=== PATIENT | male | born 1945 | race Caucasian/White ===

== ENCOUNTER → 2018-10-20 | Outpatient (CLI) | payer BC | LOC: ULTRA 13:40 | DX: R60.0 Localized edema (principal); M25.561 Pain in right knee ==

== ENCOUNTER 2019-02-26 05:46 | Day surgery (SDC) | payer BC ==
[~2019-02-26] VITALS: Ht 185.4 cm; Wt 127.0 kg
[~2019-02-26 05:46] MED LIST: CENTRUM SILVER1 EAC2 PO; FISH OIL 1,001000 M2 PO; FLOMAX0.4 MG PO; NORVASC5 MG PO
[2019-02-26 07:14] VITALS: BP 131/50
[2019-02-26 09:00] VITALS: BP 131/50
--- NOTE | 2019-04-07 11:38 | O ---
[facility] [place] [address] OPERATIVE REPORT Name: DALIA SMITH Room #: DEP [facility] Suni.#: [id number] Admission: 02/26/19 Attend Phys: Trae Brooks Discharge: 02/26/19 Date of : 47 Report #: [id number] THIS REPORT FOR: //name// CC: Trae Blount DATE OF SERVICE: 02/26/2019 PREOPERATIVE DIAGNOSES: Right knee pain, effusion, lateral meniscus tear, recurrent medial meniscus tear, patellofemoral joint osteoarthritis. 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 PROCEDURE PERFORMED: Right knee arthroscopy, partial medial and lateral meniscectomy, tricompartmental chondroplasty. SURGEON: Trae Parikh MD BUSINESS PROCESS EXPERT: Jenelle Hernandez PA-C. ANESTHESIA: General. FLUIDS: 500 mL crystalloid. ESTIMATED BLOOD LOSS: Approximately 2 mL. TOURNIQUET TIME: Approximately 25 minutes at 300 mmHg. DESCRIPTION OF PROCEDURE: After proper identification of the patient and operative site in preoperative holding area, the operative site was signed by myself. Prophylactic antibiotics given. The patient elected to receive a general anesthetic. After induction of satisfactory general anesthesia, the right knee was examined. The patient had approximately 10-15 degrees from full extension. He was stable to varus and valgus stresses. Patellofemoral crepitus was noted. Tourniquet was applied to the upper thigh. Limb was placed in an arthroscopic leg ervin and sterilely prepped and draped in the usual manner. Limb was elevated and exsanguinated with an Esmarch. Tourniquet was inflated to 300 mmHg. Superior medial portal was created for inflow purposes. Joint was inflated by gravity inflow with normal saline. An anterolateral and then an anteromedial portal were created using a spinal needle for localization. Examination of the patellofemoral joint revealed some small intra-articular chondral loose bodies that were removed with suction. Diffuse patellofemoral joint chondromalacia/arthrosis was noted. This was more pronounced on the medial patellar facet. Loose chondral flaps were debrided with motorized [address] [address] OPERATIVE REPORT Name: DALIA SMITH Room #: DEP [facility] Suni.#: [id number] Admission: 02/26/19 Attend Phys: Trae Brooks Discharge: 02/26/19 Date of : 47 Report #: [id number] shaver. Some generalized fibrillated tissue was noted surrounding this area. Chondral thinning of the more medial and superior aspect of the trochlea was noted. Examination of the medial compartment of the knee revealed a recurrent tear at the junction of the mid body and posterior horn of the meniscus. This was carefully debrided with combination of hand and motorized instrumentation. Some diffuse chondral thinning fibrillation and fraying was noted of the medial femoral condyle in approximately 30 degrees of flexion. The remaining meniscus was stable to probing. Intracondylar notch revealed some spurring about the notch. The anterior and posterior cruciate ligaments were intact and stable. Lateral compartment of the knee revealed a tear of the posterior horn and mid body. This was debrided with combination of hand and motorized instrumentation and diffuse fibrillation was noted about the lateral tibial plateau and some mild chondral thinning was also appreciated on the lateral femoral condyle. An accessory anteromedial portal was also created to aid in getting into the posterior horn of the medial meniscus due to his flexion contracture and generalized tightness. His knee remains ligamentously stable. Joint was thoroughly irrigated with normal saline. Portals closed with simple nylon stitch. Sterile dressing was applied. A 20 mL of 0.2% Naropin was injected around the skin incisions to aid in postoperative pain control. Sterile compressive dressing was applied. He was awakened and transferred to the recovery room in stable condition. <ELECTRONICALLY SIGNED> By: Trae Pairkh MD 04/07/19 1138 [id number] [id number] Trae Parikh MD /nt
== END 2019-02-26 09:35 | disposition home or self-care (01) ==
LOC: OR 05:46 → TBA 05:47 → OR 09:35
DX: M25.561 Pain in right knee (principal); S83.281A Other tear of lateral meniscus, current injury, right knee, initial encounter; S83.241A Other tear of medial meniscus, current injury, right knee, initial encounter; M17.11 Unilateral primary osteoarthritis, right knee; M94.261 Chondromalacia, right knee; M25.461 Effusion, right knee; I10 Essential (primary) hypertension; G47.30 Sleep apnea, unspecified; N40.0 Benign prostatic hyperplasia without lower urinary tract symptoms; Z98.890 Other specified postprocedural states; Z79.899 Other long term (current) drug therapy; Z88.0 Allergy status to penicillin; X58.XXXA Exposure to other specified factors, initial encounter; Y93.89 Activity, other specified; Y92.89 Other specified places as the place of occurrence of the external cause; Y99.8 Other external cause status
CPT/HCPCS: 50010; 50101; 50405; 51038; 54170; 56526; 57103; 57180; 62110; 62900; 70005